=== PATIENT | female | born 2000 | race African-American/Black ===

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

== ENCOUNTER 2023-06-20 08:16 | Emergency (ER) | payer MEDICAID ==
[~2023-06-20] VITALS: Ht 182.9 cm; Wt 76.2 kg
[2023-06-20 08:20] VITALS: BP 129/45; RESP 16; TEMP 98.5; O2SAT 100
[2023-06-20 08:23] VITALS: PULSE 80
[2023-06-20 09:26] LABS: EOSINOPHILS % 1.9 % (0.0-5.0); HEMATOCRIT. 33.4 % (36.0-48.0); HEMOGLOBIN. 10.9 g/dL (12.0-16.0); LYMPHOCYTES % 38.9 % (20.0-50.0); MEAN CORPUSCULAR HEMOGLOBIN 27.7 pg (28.0-32.0); MEAN CORPUSCULAR HGB CONC 32.7 g/dL (31.0-37.0); MEAN CORPUSCULAR VOLUME 84.6 fL (81.0-99.0); MEAN PLATELET VOLUME 8.5 fl (7.4-10.4); NEUTROPHILS % 51.2 % (40.0-76.0); PLATELET 268 x1000/uL (130-400); RED BLOOD CELL COUNT 3.95 mill/uL (4.2-5.4); RED CELL DISTRIBUTION WIDTH 15.6 % (11.6-14.6); WHITE BLOOD COUNT 4.8 x1000/uL (4.5-11.0)
[2023-06-20 09:35] LABS: CHLORIDE 109 mEq/L (98-107); INDEX HEMOLYSI 1 (1-3); INDEX ICTERIC 1 (1-4); INDEX LIPEMIC 1 (1-3); POTASSIUM 3.9 mEq/L (3.5-5.1); SODIUM 138 mEq/L (136-145)
[2023-06-20 09:44] LABS: ALANINE AMINOTRANSFERASE 15 IU/L (13-61); ALBUMIN 3.5 g/dL (3.4-5.0); ASPARTATE AMINOTRANSFERASE 11 IU/L (15-37); B-HCG QUANTITATIVE < 1 mIU/mL (<3); BILIRUBIN TOTAL 0.6 mg/dL (0.1-1.0); CALCIUM 8.4 mg/dL (8.5-10.1); CARBON DIOXIDE 26 mEq/L (21-32); CREATININE 0.8 mg/dL (0.6-1.3); GLUCOSE 101 mg/dL (70-105); PROTEIN TOTAL 8.5 g/dL (6.0-8.3); UREA NITROGEN BLOOD 12 mg/dL (7-21)
[2023-06-20] MEDS ORDERED: IBUP-2030 MT (11:22)
[2023-06-20] MEDS ORDERED: IBUPROFEN 800MG TABLET PO ONE (11:30)
== END 2023-06-20 11:42 | disposition home or self-care (01) ==
LOC: ER 08:16
DX: N93.8 Other specified abnormal uterine and vaginal bleeding (principal)
CPT/HCPCS: 36415; 76830; 76856; 80053; 84702; 85025; 86850; 86900; 99284

== ENCOUNTER 2023-07-02 18:50 | Emergency (ER) | payer MEDICAID ==
[~2023-07-02] VITALS: Ht 177.8 cm; Wt 72.0 kg
[~2023-07-02 18:50] MED LIST changes: +IBUP-2030 MT
[2023-07-02 19:01] VITALS: O2SAT 100
[2023-07-02] MEDS ORDERED: CETI10TA6 MT (22:34)
[2023-07-02] MEDS ORDERED: NAPR-681 PO (22:34)
[2023-07-02] MEDS ORDERED: DOXY100T28 MT (22:34)
[2023-07-02] MEDS ORDERED: HYDR28.485 TOP (22:34)
[2023-07-02 23:36] VITALS: BP 141/65; PULSE 63; RESP 18; TEMP 98.3
== END 2023-07-02 23:41 | disposition home or self-care (01) ==
LOC: ER 18:50
DX: S70.362A Insect bite (nonvenomous), left thigh, initial encounter (principal); S90.862A Insect bite (nonvenomous), left foot, initial encounter; Z98.890 Other specified postprocedural states; W57.XXXA Bitten or stung by nonvenomous insect and other nonvenomous arthropods, initial encounter; Y93.89 Activity, other specified; Y92.89 Other specified places as the place of occurrence of the external cause; Y99.8 Other external cause status
CPT/HCPCS: 99283

== ENCOUNTER 2023-09-14 14:03 | Emergency (ER) | payer MEDICAID ==
[~2023-09-14] VITALS: Ht 182.9 cm; Wt 82.0 kg
[~2023-09-14 14:03] MED LIST changes: +CETI10TA6 MT; +DOXY100T28 MT; +HYDR28.485 TOP; +NAPR-681 PO
[2023-09-14 14:22] VITALS: O2SAT 100
[2023-09-14] MEDS ORDERED: MICO45CR16 VG (15:29)
[2023-09-14 16:27] VITALS: BP 125/84; PULSE 70; RESP 18; TEMP 98.3
== END 2023-09-14 16:29 | disposition home or self-care (01) ==
LOC: ER 14:03
DX: B37.31 Acute candidiasis of vulva and vagina (principal); L42 Pityriasis rosea; Z98.890 Other specified postprocedural states
CPT/HCPCS: 99282

== ENCOUNTER 2024-04-04 09:57 | Emergency (ER) | payer MEDICAID ==
[~2024-04-04] VITALS: Ht 182.9 cm; Wt 83.9 kg
[~2024-04-04 09:57] MED LIST changes: +MICO45CR16 VG
[2024-04-04 10:05] VITALS: O2SAT 99
[2024-04-04] MEDS ORDERED: IBUP-2028 MT (10:44)
[2024-04-04 11:46] VITALS: BP 134/80; PULSE 79; RESP 18; TEMP 98.2
[2024-04-04] MEDS ORDERED: HYDR453.3 TP (11:47)
== END 2024-04-04 12:25 | disposition home or self-care (01) ==
LOC: ER 11:39
DX: M25.511 Pain in right shoulder (principal); R21 Rash and other nonspecific skin eruption
CPT/HCPCS: 99282